=== PATIENT | female | born 2000 | race Caucasian/White ===

== ENCOUNTER 2021-04-14 14:06 | Emergency (ER) | payer BC ==
[2021-04-14] MEDS ORDERED: Albuterol Sulfate 2.5 mg/0.5 ml Neb ONE (14:41)
[2021-04-14] MEDS ORDERED: Ipratropium Bromide 2.5 ml Neb ONE (14:41)
[2021-04-14 15:01] LABS: #Basophils 0.1 thou/uL (0.0-0.2); #Eosinphils 0.6 thou/uL (0.0-0.7); #Lymphocytes 2.2 thou/uL (1.20-3.40); #Monocytes 0.8 thou/uL (0.11-0.59); #Neutrophils 7.4 thou/uL (1.40-6.50); %Basophils 0.8 % (0.0-1.0); %Monocytes 7.6 % (0.0-10.0); %Neutrophils 66.6 % (42.0-75.0); Mean Corpuscular HGB CONC 32.2 g/dL (32.0-36.0); Mean Corpuscular Hemoglobin 26.5 pg (27.0-31.0); Mean Corpuscular Volume 82.5 fL (78.0-98.0); Mean Platelet Volume 6.2 fL (7.4-10.4); Platelet Count 454 thou/uL (130-400); RBC Distribution Width 12.5 % (11.5-14.5); Red Blood Cell (RBC) Count 4.53 mill/uL (4.20-5.40); White Blood Cell (WBC) Count 11.1 thou/uL (4.8-10.8)
[2021-04-14] MEDS ORDERED: Ondansetron ODT 4 MG TAB ONE (15:09)
[2021-04-14 15:15] LABS: ALT (SGPT) 25 U/L (8-55); AST (SGOT) 13 U/L (5-34); Albumin 4.1 g/dL (3.5-5.0); Alkaline Phosphatase 82 U/L (40-110); Anion Gap 12 mmol/L (10-20); BUN (Urea Nitrogen) 8 mg/dL (7.0-18.7); Bilirubin, Total 0.2 mg/dL (0.2-1.2); Calc. Creatinine Clearance 0 mL/min (70-130); Calcium 9.2 mg/dL (7.8-10.44); Carbon Dioxide 25 mmol/L (22-29); Chloride 106 mmol/L (98-107); Globulin 3.2 g/dL (2.4-3.5); Glucose 88 mg/dL (70-105); Potassium 3.9 mmol/L (3.5-5.1); Protein, Total 7.3 g/dL (6.0-8.3); Sodium 139 mmol/L (136-145)
[2021-04-14 15:31] LABS: Bilirubin Negative (Negative); Blood, Urine Negative (Negative); Glucose, Urine (Dipstick) Negative (Negative); Ketone, Urine Negative (Negative); Leukocyte Trace (Negative); Nitrite Negative (Negative); Protein, Urine (Dipstick) Negative (Neg-Trace); Specific Gravity, Urine 1.025 (1.005-1.030); Urobilinogen 0.2 mg/dL (Less than 2)
[2021-04-14 15:32] LABS: Bacteria/HPF Rare-Few HPF (None Seen); Clarity Hazy (Clear); RBC/HPF 0-3 HPF (0-3)
[2021-04-14] MEDS ORDERED: predniSONE 20 MG TAB ONE (15:48)
[2021-04-15 10:21] LABS: SARS-CoV-2 PCR by NAA Not Detected (NotDetected)
== END 2021-04-14 16:14 | disposition home or self-care (01) ==
LOC: MADERS 14:06
DX: O99.511 Diseases of the respiratory system complicating pregnancy, first trimester (principal); J45.901 Unspecified asthma with (acute) exacerbation; Z3A.01 Less than 8 weeks gestation of pregnancy; O99.891 Other specified diseases and conditions complicating pregnancy; R10.33 Periumbilical pain; O10.011 Pre-existing essential hypertension complicating pregnancy, first trimester; J06.9 Acute upper respiratory infection, unspecified; R11.2 Nausea with vomiting, unspecified; Z20.822 Contact with and (suspected) exposure to COVID-19; Z87.891 Personal history of nicotine dependence
CPT/HCPCS: 36415; 80053; 81003; 81015; 83690; 84702; 85025; 87804; J7512; J7611; J7620; Q0162; U0003; U0005

== ENCOUNTER 2021-06-28 19:13 | Emergency (ER) | payer BC ==
[2021-06-28 20:03] LABS: #Basophils 0.1 thou/uL (0.0-0.2); #Lymphocytes 0.5 thou/uL (1.20-3.40); #Monocytes 0.5 thou/uL (0.11-0.59); #Neutrophils 5.5 thou/uL (1.40-6.50); %Basophils 1.1 % (0.0-1.0); %Eosinophils 0.6 % (0.0-10.0); %Monocytes 7.1 % (0.0-10.0); %Neutrophils 83.2 % (42.0-75.0); Hemoglobin 11.9 g/dL (12.0-16.0); Mean Corpuscular HGB CONC 33.4 g/dL (32.0-36.0); Mean Corpuscular Volume 81.1 fL (78.0-98.0); Mean Platelet Volume 6.3 fL (7.4-10.4); Platelet Count 314 thou/uL (130-400); RBC Distribution Width 12.5 % (11.5-14.5); Red Blood Cell (RBC) Count 4.41 mill/uL (4.20-5.40); White Blood Cell (WBC) Count 6.6 thou/uL (4.8-10.8)
[2021-06-28 20:30] LABS: ALT (SGPT) 15 U/L (8-55); AST (SGOT) 14 U/L (5-34); Albumin 3.8 g/dL (3.5-5.0); Alkaline Phosphatase 69 U/L (40-110); Anion Gap 16 mmol/L (10-20); BUN (Urea Nitrogen) 6 mg/dL (7.0-18.7); Bilirubin, Total 0.3 mg/dL (0.2-1.2); Calc. Creatinine Clearance 0 mL/min (70-130); Calcium 9.4 mg/dL (7.8-10.44); Carbon Dioxide 21 mmol/L (22-29); Chloride 102 mmol/L (98-107); Globulin 3.1 g/dL (2.4-3.5); Glucose 84 mg/dL (70-105); Lipase 7 U/L (8-78); Magnesium 1.6 mg/dL (1.6-2.6); Potassium 3.7 mmol/L (3.5-5.1); Protein, Total 6.9 g/dL (6.0-8.3); Sodium 135 mmol/L (136-145)
[2021-06-28] MEDS ORDERED: Ondansetron PF 4 MG/2 ML Vial ONE (20:31)
[2021-06-28] MEDS ORDERED: Albuterol Sulfate 2.5 mg/3 ml Neb ONE (20:31)
[2021-06-28] MEDS ORDERED: Acetaminophen 500 MG TAB ONE (21:39)
[2021-06-28] MEDS ORDERED: Oseltamivir 75 MG CAP ONE (23:32)
[2021-06-29] MEDS ORDERED: Sodium Chloride 0.9% 2,000 ML ONE (00:30)
[2021-06-29 19:39] LABS: SARS-CoV-2 PCR by NAA DETECTED (NotDetected)
== END 2021-06-28 23:50 | disposition home or self-care (01) ==
LOC: MADERS 19:13
DX: O98.512 Other viral diseases complicating pregnancy, second trimester (principal); U07.1 COVID-19; J10.1 Influenza due to other identified influenza virus with other respiratory manifestations; O99.891 Other specified diseases and conditions complicating pregnancy; R00.0 Tachycardia, unspecified; Z3A.16 16 weeks gestation of pregnancy; Z87.891 Personal history of nicotine dependence
CPT/HCPCS: 71045; 80053; 83605; 83690; 83735; 84702; 85025; 86900; 86901; 87804; 93005; 96374; J2405; J7611; U0003; U0005

== ENCOUNTER 2022-08-12 08:40 | Emergency (ER) | payer BC, OTHER ==
[2022-08-12] MEDS ORDERED: Fluorescein Opthalmic Strip ONE (09:02)
[2022-08-12] MEDS ORDERED: Tetracaine 0.5% PF 4 ML BOT ONE (09:02)
== END 2022-08-12 09:30 | disposition home or self-care (01) ==
LOC: MADERS 08:40
DX: S05.01XA Injury of conjunctiva and corneal abrasion without foreign body, right eye, initial encounter (principal); E66.9 Obesity, unspecified; F17.290 Nicotine dependence, other tobacco product, uncomplicated; X58.XXXA Exposure to other specified factors, initial encounter
CPT/HCPCS: 99283

== ENCOUNTER 2023-01-11 08:09 | Emergency (ER) | payer BC, OTHER ==
[2023-01-11] MEDS ORDERED: Ipratropium/Albuterol 3 ML NEB ONE (08:50)
== END 2023-01-11 09:59 | disposition home or self-care (01) ==
LOC: MADERS 08:09
DX: J20.9 Acute bronchitis, unspecified (principal); E66.9 Obesity, unspecified; F17.210 Nicotine dependence, cigarettes, uncomplicated; F17.290 Nicotine dependence, other tobacco product, uncomplicated
CPT/HCPCS: 71045; J7620

== ENCOUNTER 2023-04-04 19:56 | Emergency (ER) | payer BC ==
[~2023-04-04 19:56] MED LIST: Iopamidol 370 76% 100 ML VIAL ONE; Sodium Chloride 0.9% 100 ML BAG ONE
[2023-04-04] MEDS ORDERED: Ondansetron PF 4 MG/2 ML Vial ONE (20:19)
[2023-04-04] MEDS ORDERED: methylPREDNISolone Sod Succ/PF 125 MG/2 ML VIAL ONE (20:19)
[2023-04-04] MEDS ORDERED: Ipratropium/Albuterol 3 ML NEB ONE (20:19)
[2023-04-04] MEDS ORDERED: Sodium Chloride 0.9% 1,000 ML ONE (20:19)
[2023-04-04 20:36] LABS: BHCG - Serum Negative (NEGATIVE); Pregs Control Background? CLEAR/WHITE (CLR/WHITE); Pregs Control Bar Appear? YES (CONTROL BAR)
[2023-04-04 20:44] LABS: Band 5 % (5-11); Eosinophils 1 % (0-10); Hematocrit 41.4 % (36.0-47.0); Hemoglobin 13.3 g/dL (12.0-16.0); Lymphocytes 30 % (21-51); MDiff Complete? YES; Mean Corpuscular HGB CONC 32.1 g/dL (32.0-36.0); Mean Corpuscular Hemoglobin 26.7 pg (27.0-31.0); Mean Corpuscular Volume 83.2 fl (78.0-98.0); Mean Platelet Volume 7.9 fL (7.4-10.4); Monocytes 7 % (0-10); Neutrophil 57 % (42-75); Platelet Adequacy Comment Appears Adequate; Platelet Count 401 10x3/uL (130-400); RBC Distribution Width 13.9 % (11.5-14.5); Red Blood Cell (RBC) Count 4.98 mill/uL (4.20-5.40); White Blood Cell (WBC) Count 10.7 10x3/uL (4.8-10.8)
[2023-04-04 20:48] LABS: Anion Gap 17 mmol/L (10-20); BUN (Urea Nitrogen) 7 mg/dL (7.0-18.7); Calc. Creatinine Clearance 0 mL/min (70-130); Calcium 8.6 mg/dL (7.8-10.44); Carbon Dioxide 18 mmol/L (22-29); Chloride 103 mmol/L (98-107); Estimated GFR 112; Glucose 114 mg/dL (70-105); Lipase 12 U/L (8-78); Magnesium 2.4 mg/dL (1.6-2.6); Potassium 3.5 mmol/L (3.5-5.1); Sodium 134 mmol/L (136-145)
[2023-04-04 20:52] LABS: Troponin I Less than 0.010 ng/mL (< 0.028)
[2023-04-04] MEDS ORDERED: Ketorolac Tromethamine 30 MG/ML VIAL ONE (20:57)
== END 2023-04-04 22:52 | disposition home or self-care (01) ==
LOC: MADERS 19:56
DX: J42 Unspecified chronic bronchitis (principal); R11.0 Nausea; F17.210 Nicotine dependence, cigarettes, uncomplicated
CPT/HCPCS: 71045; 71275; 80048; 83605; 83690; 83735; 84484; 84703; 85025; 85379; 93005; 96361; 96374; 96375; J1885; J2405; J2930; J7050; J7620; Q9967

== ENCOUNTER 2024-01-16 23:24 | Emergency (ER) | payer BC | END 2024-01-17 01:00 | disposition home or self-care (01) | LOC: MADERS 23:24 | DX: R22.0 Localized swelling, mass and lump, head (principal); R03.0 Elevated blood-pressure reading, without diagnosis of hypertension; F17.290 Nicotine dependence, other tobacco product, uncomplicated | CPT/HCPCS: 70450 ==